=== PATIENT | female | born 1995 | race Two or more races ===

== ENCOUNTER 2023-08-23 09:10 | Emergency (ER) | payer OTHER ==
[~2023-08-23] VITALS: Ht 165.1 cm; Wt 94.6 kg
[2023-08-23 09:39] LABS: Urine Bacteria None Seen /hpf (None Seen)
[2023-08-23 09:51] LABS: Urine Blood 3+ /uL (Negative); Urine Clarity Clear (Clear); Urine Color Colorless (Yellow); Urine Protein, UAD Negative (Negative); Urine Specific Gravity 1.009 (1.001-1.035); Urine Urobilinogen Normal (Negative); Urine WBC 2 /hpf (0 - 5)
[2023-08-23 11:21] VITALS: BP 138/76; PULSE 78; RESP 16; TEMP 98.3; O2SAT 98
== END 2023-08-23 11:24 | disposition home or self-care (01) ==
LOC: ER 09:10
DX: N93.9 Abnormal uterine and vaginal bleeding, unspecified (principal); R10.2 Pelvic and perineal pain; Z90.49 Acquired absence of other specified parts of digestive tract
CPT/HCPCS: 36415; 81001; 84702